=== PATIENT | male | born 1980 | race Caucasian/White ===

== ENCOUNTER 2021-12-17 00:41 | Emergency (ER) | payer OTHER ==
[~2021-12-17] VITALS: Ht 175.3 cm; Wt 106.1 kg
[2021-12-17 02:22] VITALS: BP 116/74
== END 2021-12-17 02:22 | disposition home or self-care (01) ==
LOC: FSED 01:08
DX: R07.9 Chest pain, unspecified (principal); F11.20 Opioid dependence, uncomplicated; F17.210 Nicotine dependence, cigarettes, uncomplicated
CPT/HCPCS: 71046; 80053; 82553; 84484; 85025; 93005; 99283